=== PATIENT | male | born 1965 | race Caucasian/White ===

== ENCOUNTER → 2024-12-23 12:54 | Outpatient (REF) | payer OTHER, SELFPAY | LOC: HWRAD 12:54 | PROVIDERS: ATTENDING PHYSICIAN Internal Medicine | DX: A69.20 Lyme disease, unspecified (principal); G47.33 Obstructive sleep apnea (adult) (pediatric); R41.89 Other symptoms and signs involving cognitive functions and awareness; L98.9 Disorder of the skin and subcutaneous tissue, unspecified; Z00.00 Encounter for general adult medical examination without abnormal findings | CPT/HCPCS: 70450 ==